=== PATIENT | female | born 1990 | race Caucasian/White ===

== ENCOUNTER 2020-06-06 17:23 | Emergency (ER) | END 2020-06-06 17:58 | disposition left against medical advice (07) | LOC: COL.ER 17:23 | DX: Z00.00 Encounter for general adult medical examination without abnormal findings (principal) ==

== ENCOUNTER 2020-12-30 09:24 | Emergency (ER) | payer SELFPAY ==
[~2020-12-30] VITALS: Ht 160 cm; Wt 77.3 kg
[2020-12-30] MEDS ORDERED: DOXYCYCLINE 10100 MG PO (10:30)
[2020-12-30 10:50] VITALS: BP 130/90; PULSE 99
== END 2020-12-30 10:51 | disposition home or self-care (01) ==
LOC: COL.ER 09:24
DX: L73.2 Hidradenitis suppurativa (principal); F17.200 Nicotine dependence, unspecified, uncomplicated

== ENCOUNTER 2021-02-09 14:32 | Emergency (ER) | payer SELFPAY ==
[~2021-02-09] VITALS: Ht 160 cm; Wt 69.5 kg
[~2021-02-09 14:32] MED LIST: DOXYCYCLINE 10100 MG PO
[2021-02-09 16:11] VITALS: BP 133/64; TEMP 98.2
[2021-02-09 18:26] VITALS: PULSE 75
== END 2021-02-09 18:26 | disposition home or self-care (01) ==
LOC: COL.ER 14:32
DX: Z20.2 Contact with and (suspected) exposure to infections with a predominantly sexual mode of transmission (principal); Z32.02 Encounter for pregnancy test, result negative; Z88.0 Allergy status to penicillin
CPT/HCPCS: J0696

== ENCOUNTER 2021-06-02 00:55 | Emergency (ER) | payer SELFPAY ==
[2021-06-02 01:07] VITALS: BP 119/72; PULSE 71; TEMP 98.3
[2021-06-02 01:23] LABS: COLLECTION METHOD CLEAN CATCH
[2021-06-02 01:26] LABS: BASO # 0.1 K/mm3 (0.0-0.2); BASO % 1.2 % (0.0-2.0); EOS # 0.2 K/mm3 (0.0-0.7); EOS % 3.1 % (0.0-4.0); GRAN # 3.6 K/mm3 (1.4-6.5); GRAN % 52.8 % (42.2-75.2); HEMOGLOBIN 12.5 g/dl (12.5-16.0); LYMPH # 2.4 K/mm3 (1.2-3.4); LYMPH % 35.2 % (20.0-51.0); MEAN CELL VOLUME 81 fl (80.0-100.0); MEAN CORPUSCULAR HEMOGLOBIN 27 pg (27-31); MEAN CORPUSCULAR HGB CONC 33 g/dl (33.0-37.0); MEAN PLATELET VOLUME 9.6 fl (7.4-10.4); MONO # 0.5 K/mm3 (0.1-0.6); MONO % 7.6 % (1.7-9.3); PLATELET COUNT 324 K/mm3 (130-400); RED BLOOD COUNT 4.68 M/mm3 (4.10-5.30); REDCELL DISTRIBUTION WIDTH-CV 13.9 % (11.5-14.5)
[2021-06-02 01:34] LABS: MUCOUS Present (NOT PRESENT); PH 5 (5-8); URINE APPEARANCE Cloudy (CLEAR/HAZY); URINE BACTERIA None Seen /hpf (NONE SEEN); URINE BILIRUBIN Negative (NEGATIVE); URINE BLOOD Negative (NEGATIVE); URINE COLOR Yellow (YELLOW); URINE GLUCOSE Negative (NEGATIVE); URINE KETONE Trace (NEGATIVE); URINE LEUKOCYTE ESTERASE 1+ (NEGATIVE); URINE NITRATE Negative (NEGATIVE); URINE PROTEIN(semi-quant) 1+ (NEGATIVE); URINE RBC 0-2 /hpf (0-2); URINE UROBILINOGEN Negative (NEGATIVE)
[2021-06-02 01:40] LABS: TRICYCLIC ANTIDEPRESS URINE NEGATIVE
[2021-06-02 01:43] LABS: ACETAMINOPHEN < 1.0 ug/mL (10-30); ALANINE AMINOTRANSFERASE 18 U/L (0-55); ALBUMIN 4.1 gm/dL (3.5-5.0); ALCOHOL(ethanol),MEDICAL < 10 mg/dL (0-10); ALKALINE PHOSPHATASE 76 U/L (40-150); ANION GAP 9 mmol/L (7-16); AST,SGOT 21 U/L (5-34); BILIRUBIN,TOTAL 0.3 mg/dL (0.2-1.2); BLOOD UREA NITROGEN 15 mg/dL (7-19); CALCIUM 9.1 mg/dL (8.4-10.2); CARBON DIOXIDE 23 mmol/L (22-29); CHLORIDE 108 mmol/L (98-107); CREATININE, serum 0.73 mg/dL (0.57-1.11); GLUCOSE 87 mg/dL (70-99); POTASSIUM 4.1 mmol/L (3.5-4.5); SALICYLATE < 5.0 mg/dL (15.0-30.0); SODIUM 140 mmol/L (136-145); TOTAL PROTEIN 7.4 gm/dL (6.2-8.1)
[2021-06-02 02:02] LABS: TSH w REFLEX 0.272 uIU/mL (0.350-4.940)
== END 2021-06-02 04:35 | disposition home or self-care (01) ==
LOC: COL.ER 00:55
PROVIDERS: Emergency Medicine
DX: F32.A Depression, unspecified (principal); F17.210 Nicotine dependence, cigarettes, uncomplicated